=== PATIENT | female | born 1980 | race Caucasian/White ===

== ENCOUNTER → 2016-09-23 | Outpatient (CLI) | payer BC ==
[2016-09-23 07:41] LABS: HCG, SERUM QUANTITATIVE < 1.0 MIU/ML
--- NOTE | 2016-09-23 08:32 | REP ---
Clinical: Infertility. Technique: Transvaginal ultrasound examination with color Doppler evaluation of the ovaries. Findings: Normal anteverted uterus measures approximately 7.0 x 3.5 x 4.8 cm. The endometrial complex measures 5.0 mm thickness. No discrete uterine or endometrial abnormalities are appreciated. The right ovary measures 2.6 x 2.1 x 2.2 cm and includes approximately four sub centimeter follicles. The left ovary measures 2.4 x 1.6 x 2.7 cm and includes 2 sub centimeter follicles. Impression: Sub centimeter follicles noted bilaterally. Signed by Garcia Estrella MD 09/23/2016 08:24 A
[2016-09-23 10:16] LABS: ESTRADIOL 25.5 PG/ML; LUTEINIZING HORMONE 9.9 mIU/mL; PROGESTERONE < 0.2 NG/ML
== END ==
LOC: M RAD 06:22
PROVIDERS: ATTEND Obstetrics & Gynecology Reproductive Endocrinology
DX: R93.8 Abnormal findings on diagnostic imaging of other specified body structures (principal)

== ENCOUNTER → 2016-09-30 | Outpatient (CLI) | payer BC ==
[2016-09-30 10:42] LABS: HCG, SERUM QUANTITATIVE < 1.0 MIU/ML
[2016-09-30 10:47] LABS: LUTEINIZING HORMONE 4.6 mIU/mL; PROGESTERONE < 0.2 NG/ML
[2016-09-30 10:48] LABS: ESTRADIOL 183.4 PG/ML; FOLLICLE STIMULATING HORMONE 8.3 mIU/mL
--- NOTE | 2016-09-30 11:28 | REP ---
Clinical: Infertility. Technique: Transvaginal examination. Findings: Anteverted uterus measures 7.4 x 3.5 x 5.7 cm. The endometrial complex measures 2.5 mm thickness excluding the trace endocervical fluid identified. No pelvic fluid or adnexal mass lesion. Right ovary measures 2.8 x 2.1 x 3.1 cm and includes three 11 mm follicles along with approximately 15 sub centimeter follicles. Left ovary measures 3.2 x 128 x 3.0 cm and includes three follicles measuring 11 - 15 mm along with approximately 15 sub centimeter follicles. Impression: Infertility study with follicles as detailed above. Signed by Garcia Estrella MD 09/30/2016 11:20 A
== END ==
LOC: M RAD 09:43
PROVIDERS: ATTEND Obstetrics & Gynecology Reproductive Endocrinology
DX: N97.9 Female infertility, unspecified (principal)

== ENCOUNTER → 2016-10-03 | Outpatient (CLI) | payer BC ==
[2016-10-03 08:18] LABS: HCG, SERUM QUANTITATIVE < 1.0 MIU/ML
--- NOTE | 2016-10-03 08:30 | REP ---
Transvaginal pelvic sonography: History: Fertility study. Findings: Transvaginal dimensions of the uterus are 8.6 x 4.0 x 5.5 cm. Endometrial stripe is 0.7 cm thick and centrally placed. No focal uterine mass is seen. No free fluid is noted. The overall dimensions of the right ovary today are 4.3 x 2.4 x 3.0 cm on transvaginal sonography. There are two follicles in the right ovary with dimensions over a centimeter: 1.1 x 0.9, and 1.5 x 1.3 cm. There are 17 follicles visible in the right ovary ranging in size from 0.3-0.9 cm. The left ovary has dimensions of 4.1 x 3.2 x 2.9 cm. There are two follicles over a centimeter in the left ovary: 1.8 x 1.5, and 1.1 x 0.6 cm. There are 23 follicles in the left ovary ranging in size from 0.3-0.9 cm in greatest diameter. Impression: Transvaginal pelvic sonography, follicle study. Signed by Jam Trivedi MD 10/03/2016 03:19 P
[2016-10-03 10:50] LABS: LUTEINIZING HORMONE 1.1 mIU/mL; PROGESTERONE < 0.2 NG/ML
[2016-10-03 10:51] LABS: ESTRADIOL 596.9 PG/ML; FOLLICLE STIMULATING HORMONE 8.5 mIU/mL
== END ==
LOC: M RAD 07:01 → M LAB 07:01
PROVIDERS: ATTEND Obstetrics & Gynecology Reproductive Endocrinology
DX: N97.9 Female infertility, unspecified (principal)

== ENCOUNTER → 2016-10-12 | Outpatient (CLI) | payer BC ==
[2016-10-12 08:48] LABS: ESTRADIOL 238.4 PG/ML; PROGESTERONE 12.9 NG/ML
== END ==
LOC: M LAB 06:22
PROVIDERS: ATTEND Obstetrics & Gynecology Reproductive Endocrinology
DX: Z31.49 Encounter for other procreative investigation and testing (principal)

== ENCOUNTER → 2016-10-19 | Outpatient (CLI) | payer BC ==
[2016-10-19 09:29] LABS: PROGESTERONE 10.9 NG/ML
[2016-10-19 09:37] LABS: HCG, SERUM QUANTITATIVE < 1.0 MIU/ML
== END ==
LOC: M LAB 08:25
PROVIDERS: ATTEND Obstetrics & Gynecology Reproductive Endocrinology
DX: Z32.00 Encounter for pregnancy test, result unknown (principal)

== ENCOUNTER → 2016-10-21 | Outpatient (CLI) | payer BC ==
[2016-10-21 07:11] LABS: HCG, SERUM QUANTITATIVE < 1.0 MIU/ML
[2016-10-21 09:54] LABS: ESTRADIOL 26.9 PG/ML; FOLLICLE STIMULATING HORMONE 6.6 mIU/mL; LUTEINIZING HORMONE 5.8 mIU/mL; PROGESTERONE 0.7 NG/ML
== END ==
LOC: M LAB 06:01
PROVIDERS: ATTEND Obstetrics & Gynecology Reproductive Endocrinology
DX: N97.9 Female infertility, unspecified (principal)

== ENCOUNTER → 2016-10-25 | Outpatient (CLI) | payer BC ==
[2016-10-25 07:26] LABS: HCG, SERUM QUANTITATIVE < 1.0 MIU/ML
[2016-10-25 09:14] LABS: ESTRADIOL 388.4 PG/ML; FOLLICLE STIMULATING HORMONE 11.2 mIU/mL; LUTEINIZING HORMONE 2.3 mIU/mL; PROGESTERONE < 0.2 NG/ML
--- NOTE | 2016-10-25 15:45 | REP ---
Clinical: Infertility. Technique: Transvaginal ultrasound examination. Comparison: 10/03/2016. Findings: Normal anteverted uterus measures 7.9 x 3.7 x 4.7 cm. Endometrial complex measures 4.4 mm thickness. No discrete uterine or endometrial abnormalities are appreciated. No pelvic fluid or adnexal mass lesion. Right ovary measures 2.9 x 2.2 x 2.5 cm and includes four follicles measuring between 12 and 15 mm as well as approximately 10 sub centimeter follicles. Left ovary measures 3.4 x 2.5 x 2.7 cm and includes three follicles measuring between 10 and 11 mm as well as approximately 20 sub centimeter follicles. Impression: Follicular study as detailed above. Signed by Garcia Estrella MD 10/25/2016 03:34 P
== END ==
LOC: M LAB 06:36
PROVIDERS: ATTEND Obstetrics & Gynecology Reproductive Endocrinology
DX: N97.9 Female infertility, unspecified (principal)

== ENCOUNTER → 2016-10-28 | Outpatient (CLI) | payer BC ==
[2016-10-28 07:39] LABS: HCG, SERUM QUANTITATIVE < 1.0 MIU/ML
--- NOTE | 2016-10-28 08:24 | REP ---
Clinical: Infertility. Comparison: 10/25/2016. Technique: Transvaginal ultrasound examination of the uterus and adnexa. Findings: Normal anteverted uterus measures 9.3 x 4.1 x 6.1 cm. Endometrial complex measures 8.5 mm thickness and appears normal. Minuscule amount of endocervical fluid is suggested. Right ovary measures 4.3 x 3.4 x 4.3 cm and includes six follicles between 10 19 mm along with 12 sub centimeter follicles. Left ovary measures 4.0 x 4.6 x 3.7 cm and includes nine follicles between 10 and 15 mm along with seven subcentimeter follicles. Impression: Follicular study as described above. Signed by Garcia Estrella MD 10/28/2016 08:16 A
[2016-10-28 09:52] LABS: LUTEINIZING HORMONE 2.2 mIU/mL; PROGESTERONE 0.3 NG/ML
[2016-10-28 09:53] LABS: ESTRADIOL 1611.2 PG/ML
== END ==
LOC: M RAD 06:35
PROVIDERS: ATTEND Obstetrics & Gynecology Reproductive Endocrinology
DX: N97.9 Female infertility, unspecified (principal)

== ENCOUNTER → 2016-11-04 | Outpatient (CLI) | payer BC ==
[2016-11-04 10:05] LABS: PROGESTERONE 8.2 NG/ML
[2016-11-04 10:06] LABS: ESTRADIOL 63.6 PG/ML
== END ==
LOC: M LAB 06:56
PROVIDERS: ATTEND Obstetrics & Gynecology Reproductive Endocrinology
DX: N97.9 Female infertility, unspecified (principal)

== ENCOUNTER → 2016-11-14 | Outpatient (CLI) | payer BC ==
[2016-11-14 09:40] LABS: PROGESTERONE 0.7 NG/ML
== END ==
LOC: M LAB 06:45
PROVIDERS: ATTEND Obstetrics & Gynecology Reproductive Endocrinology
DX: Z32.00 Encounter for pregnancy test, result unknown (principal)

== ENCOUNTER → 2016-11-16 | Outpatient (CLI) | payer BC ==
[2016-11-16 09:03] LABS: PROGESTERONE 9.2 NG/ML
== END ==
LOC: M LAB 06:27
PROVIDERS: ATTEND Obstetrics & Gynecology Reproductive Endocrinology
DX: Z32.01 Encounter for pregnancy test, result positive (principal)

== ENCOUNTER → 2016-12-07 | Outpatient (CLI) | payer BC ==
[2016-12-07 08:30] LABS: HCG, SERUM QUANTITATIVE 72 MIU/ML
[2016-12-07 09:58] LABS: PROGESTERONE < 0.2 NG/ML
[2016-12-07 09:59] LABS: ESTRADIOL 80.9 PG/ML; FOLLICLE STIMULATING HORMONE 6.9 mIU/mL; LUTEINIZING HORMONE 7.8 mIU/mL
== END ==
LOC: M LAB 06:51
PROVIDERS: ATTEND Obstetrics & Gynecology Reproductive Endocrinology
DX: N97.9 Female infertility, unspecified (principal)

== ENCOUNTER → 2016-12-16 | Outpatient (CLI) | payer BC | LOC: M LAB 14:18 | PROVIDERS: ATTEND Obstetrics & Gynecology Reproductive Endocrinology | DX: N97.9 Female infertility, unspecified (principal) ==

== ENCOUNTER → 2017-01-03 | Outpatient (CLI) | payer BC | LOC: M LAB 14:35 | PROVIDERS: ATTEND Obstetrics & Gynecology Reproductive Endocrinology | DX: N97.9 Female infertility, unspecified (principal) ==

== ENCOUNTER → 2017-01-17 | Outpatient (CLI) | payer BC | LOC: M LAB 14:35 | PROVIDERS: ATTEND Obstetrics & Gynecology Reproductive Endocrinology | DX: O02.1 Missed abortion (principal) ==

== ENCOUNTER → 2017-04-03 | Outpatient (CLI) | payer BC ==
--- NOTE | 2017-04-03 10:05 | REP ---
TRANSVAGINAL PELVIC SONOGRAPHY: HISTORY: Infertility. FINDINGS: Uterine dimensions are 7.5 x 3.7 x 5.0 cm. Endometrial echo 0.6 cm thick. No focal uterine mass is seen. No free fluid is noted. The right ovary measures 3.1 x 2.3 x 3.1 cm. It contains a 1.6 x 1.7 x 1.4 cm hypoechoic cyst consistent with a hemorrhagic follicle. In addition, there are 14 small follicles in the right ovary ranging in size from 0.3 to 0.8 cm. Left ovary's dimensions today are 3.1 x 2.1 x 2.7 cm. There are 19 follicles ranging in size from 0.3 to 0.8 cm in the left ovary. No left ovarian follicles are seen greater than 1 cm. IMPRESSION: Transvaginal pelvic sonography, follicle study as above. Signed by Jam Trivedi MD 04/03/2017 02:44 P
[2017-04-03 11:01] LABS: HCG, SERUM QUANTITATIVE < 1.0 MIU/ML
[2017-04-03 11:06] LABS: ESTRADIOL 62.4 PG/ML; LUTEINIZING HORMONE 26.7 mIU/mL; PROGESTERONE 0.5 NG/ML
== END ==
LOC: M LAB 08:57 → M RAD 08:57
PROVIDERS: ATTEND Obstetrics & Gynecology Reproductive Endocrinology
DX: N83.01 Follicular cyst of right ovary (principal); N97.9 Female infertility, unspecified

== ENCOUNTER → 2017-04-05 | Outpatient (REF) | payer BC | LOC: M LAB REF 16:40 | PROVIDERS: ATTEND Family Medicine | DX: D23.62 Other benign neoplasm of skin of left upper limb, including shoulder (principal) ==

== ENCOUNTER → 2017-04-06 | Outpatient (REF) | payer BC | LOC: M LAB REF 16:30 | PROVIDERS: ATTEND Family Medicine | DX: D22.5 Melanocytic nevi of trunk (principal) ==

== ENCOUNTER → 2017-04-07 | Outpatient (CLI) | payer BC ==
[2017-04-07 11:44] LABS: PROGESTERONE 0.9 NG/ML
[2017-04-07 11:45] LABS: LUTEINIZING HORMONE 35.3 mIU/mL
[2017-04-07 11:46] LABS: ESTRADIOL 729.5 PG/ML
--- NOTE | 2017-04-07 15:16 | REP ---
Pelvic sonography: Transvaginal study. History: Infertility. Findings: Uterine dimensions are normal today at 8.1 x 3.8 x 5.2 cm. There is a Nabothian cyst in the cervix. Endometrial echo is 1.0 cm thick. No focal uterine mass or free fluid is seen. The overall dimensions of the right ovary on transvaginal sonography today are 3.4 x 3.1 x 3.2 cm. The right ovary contains four follicles measuring over a centimeter as follows: 1.0 x 1.0, 1.0 x 0.8, 1.2 x 1.0, and 1.1 x 0.8 cm. In addition, there are approximately 36 follicles in the right ovary ranging in size from 0.3 to 0.7 cm. The left ovarian dimensions are 4.3 x 3.1 x 3.1 cm. The left ovary contains three follicles over a centimeter measured as follows: 1.3 x 1.0, 1.4 x 1.0, and 1.2 x 0.8 cm. In addition, the left ovary contains 10 follicles ranging in size from 0.3 to 0.6 cm. Impression: Transvaginal pelvic sonography, ovarian follicle study. Signed by Jam Trivedi MD 04/07/2017 03:19 P
== END ==
LOC: M LAB 07:22
PROVIDERS: ATTEND Obstetrics & Gynecology Reproductive Endocrinology
DX: N97.9 Female infertility, unspecified (principal)

== ENCOUNTER → 2017-04-19 | Outpatient (CLI) | payer BC ==
[2017-04-19 09:58] LABS: ESTRADIOL 290.4 PG/ML; PROGESTERONE 14.2 NG/ML
== END ==
LOC: M LAB 07:04
PROVIDERS: ATTEND Obstetrics & Gynecology Reproductive Endocrinology
DX: N97.9 Female infertility, unspecified (principal)

== ENCOUNTER → 2017-04-26 | Outpatient (CLI) | payer BC | LOC: M LAB 06:28 | PROVIDERS: ATTEND Obstetrics & Gynecology Reproductive Endocrinology | DX: N97.9 Female infertility, unspecified (principal) ==

== ENCOUNTER → 2017-04-28 | Outpatient (CLI) | payer BC ==
[2017-04-28 07:20] LABS: ESTRADIOL 164.7 PG/ML; PROGESTERONE 23.5 NG/ML
== END ==
LOC: M LAB 06:20
PROVIDERS: ATTEND Obstetrics & Gynecology Reproductive Endocrinology
DX: Z32.01 Encounter for pregnancy test, result positive (principal)

== ENCOUNTER → 2017-05-01 | Outpatient (CLI) | payer BC ==
[2017-05-01 10:40] LABS: ESTRADIOL 236.5 PG/ML; PROGESTERONE 23.7 NG/ML
== END ==
LOC: M LAB 06:21
PROVIDERS: ATTEND Obstetrics & Gynecology Reproductive Endocrinology
DX: Z32.01 Encounter for pregnancy test, result positive (principal)

== ENCOUNTER → 2017-05-03 | Outpatient (CLI) | payer BC ==
[2017-05-03 10:09] LABS: ESTRADIOL 261.2 PG/ML; PROGESTERONE 17.3 NG/ML
== END ==
LOC: M LAB 06:23
PROVIDERS: ATTEND Obstetrics & Gynecology Reproductive Endocrinology
DX: Z32.01 Encounter for pregnancy test, result positive (principal)

== ENCOUNTER → 2017-07-26 | Outpatient (CLI) | payer BC ==
[2017-07-26 08:30] LABS: HCG, SERUM QUANTITATIVE < 1.0 MIU/ML
[2017-07-26 11:17] LABS: PROGESTERONE 0.5 NG/ML
[2017-07-26 11:20] LABS: LUTEINIZING HORMONE 23.3 mIU/mL
[2017-07-26 11:21] LABS: ESTRADIOL 63.6 PG/ML; FOLLICLE STIMULATING HORMONE 7.2 mIU/mL
--- NOTE | 2017-07-26 17:56 | REP ---
TRANSVAGINAL PELVIC ULTRASOUND, FOLLICLE STUDY: Transvaginal pelvic ultrasound performed. The uterus measures 7.8 x 4.8 x 3.4 cm. Endometrial stripe measures 3 mm. Trace fluid is seen in the endometrial canal. The right ovary measures 2.6 x 2.9 x 2.8 cm. Three dominant follicles measure greater than 1 cm in diameter. The largest measures 11 x 9 and 12 x 6 mm. Multiple other subcentimeter follicles are seen in the right ovary. The left ovary measures 2.8 x 2.9 x 3.2 cm. A dominant follicle measures 11 x 10 mm. Multiple other subcentimeter follicles are seen. Signed by Amandeep Casey MD 07/27/2017 08:25 P
== END ==
LOC: M RAD 07:15
PROVIDERS: ATTEND Obstetrics & Gynecology Reproductive Endocrinology
DX: N97.9 Female infertility, unspecified (principal); N83.02 Follicular cyst of left ovary; N83.01 Follicular cyst of right ovary

== ENCOUNTER → 2017-08-14 | Outpatient (CLI) | payer BC ==
[2017-08-14 08:32] LABS: ESTRADIOL 484.2 PG/ML
[2017-08-14 08:55] LABS: PROGESTERONE 52.4 NG/ML
== END ==
LOC: M LAB 06:51
DX: N97.9 Female infertility, unspecified (principal)
CPT/HCPCS: 84443

== ENCOUNTER → 2017-08-21 | Outpatient (CLI) | payer BC ==
[2017-08-21 08:24] LABS: HCG, SERUM QUANTITATIVE < 1.0 MIU/ML
[2017-08-21 10:40] LABS: PROGESTERONE 40.8 NG/ML
== END ==
LOC: M LAB 07:31
DX: N97.9 Female infertility, unspecified (principal)
CPT/HCPCS: 84702

== ENCOUNTER → 2017-09-27 | Outpatient (CLI) | payer BC | LOC: M RAD 11:02 | DX: E28.9 Ovarian dysfunction, unspecified (principal) | CPT/HCPCS: 76830 ==

== ENCOUNTER → 2017-09-27 | Outpatient (CLI) | payer BC ==
[2017-09-27 11:43] LABS: LUTEINIZING HORMONE 5.3 mIU/mL
[2017-09-27 11:43] LABS: PROGESTERONE 0.4 NG/ML
[2017-09-27 11:44] LABS: ESTRADIOL 45.5 PG/ML; FOLLICLE STIMULATING HORMONE 4.7 mIU/mL
[2017-09-27 11:49] LABS: HCG, SERUM QUANTITATIVE < 1.0 MIU/ML
== END ==
LOC: M LAB 10:46
DX: E28.9 Ovarian dysfunction, unspecified (principal)

== ENCOUNTER → 2017-10-04 | Outpatient (REF) | payer BC | LOC: M LAB REF 13:18 | DX: R30.0 Dysuria (principal) | CPT/HCPCS: 87186 ==

== ENCOUNTER → 2017-10-06 | Outpatient (REF) | payer BC ==
[2017-10-06 12:29] LABS: PROGESTERONE < 0.2 NG/ML
[2017-10-06 12:30] LABS: ESTRADIOL 1214.4 PG/ML; LUTEINIZING HORMONE 9.8 mIU/mL
== END ==
LOC: M LABDRAW1 11:47
DX: E28.9 Ovarian dysfunction, unspecified (principal)
CPT/HCPCS: 83002

== ENCOUNTER → 2017-10-17 | Outpatient (CLI) | payer BC ==
[2017-10-17 09:53] LABS: ESTRADIOL 659.3 PG/ML
[2017-10-17 09:53] LABS: PROGESTERONE 41.7 NG/ML
== END ==
LOC: M LAB 06:46
DX: E28.9 Ovarian dysfunction, unspecified (principal)
CPT/HCPCS: 84443

== ENCOUNTER → 2017-10-23 | Outpatient (CLI) | payer BC ==
[2017-10-23 07:56] LABS: HCG, SERUM QUANTITATIVE 13 MIU/ML
[2017-10-23 09:01] LABS: PROGESTERONE 49.9 NG/ML
== END ==
LOC: M LAB 07:12
DX: E28.9 Ovarian dysfunction, unspecified (principal)

== ENCOUNTER → 2017-10-25 | Outpatient (CLI) | payer BC ==
[2017-10-25 15:15] LABS: ESTRADIOL 1500.5 PG/ML
[2017-10-25 15:15] LABS: PROGESTERONE 32.4 NG/ML
[2017-10-25 15:16] LABS: HCG, SERUM QUANTITATIVE 12 MIU/ML; THYROID STIMULATING HORMONE 0.759 uIU/ML (0.358-3.740)
== END ==
LOC: M LAB 14:17
DX: E28.9 Ovarian dysfunction, unspecified (principal)
CPT/HCPCS: 84443

== ENCOUNTER → 2018-05-09 | Outpatient (REF) | payer BC | LOC: M LAB REF 17:27 | DX: R30.0 Dysuria (principal) | CPT/HCPCS: 87086 ==

== ENCOUNTER → 2018-05-11 | Outpatient (REF) | payer BC ==
[2018-05-11 19:27] LABS: CHLAMYDIA DNA AMPLIFICATION NEGATIVE (NEGATIVE); GC DNA AMPLIFICATION NEGATIVE (NEGATIVE)
== END ==
LOC: M LAB REF 16:51
DX: Z11.3 Encounter for screening for infections with a predominantly sexual mode of transmission (principal)
CPT/HCPCS: 87591

== ENCOUNTER → 2018-05-14 | Outpatient (CLI) | payer BC | LOC: M RAD 17:10 | DX: R10.2 Pelvic and perineal pain (principal) | CPT/HCPCS: 76856 ==

== ENCOUNTER → 2018-06-06 | Outpatient (REF) | payer BC ==
[2018-06-08 14:28] LABS: HPV HYBRID CAPTURE II Negative (Negative)
== END ==
LOC: M LAB REF 17:19
DX: Z12.4 Encounter for screening for malignant neoplasm of cervix (principal)
CPT/HCPCS: 88142

== ENCOUNTER → 2018-07-09 | Outpatient (CLI) | payer BC ==
[2018-07-09 20:13] LABS: HCG, SERUM QUANTITATIVE < 1.0 MIU/ML
[2018-07-09 20:18] LABS: ESTRADIOL 45.4 PG/ML
[2018-07-09 20:18] LABS: PROGESTERONE 0.21 NG/ML
== END ==
LOC: M WUC 15:38
DX: N91.1 Secondary amenorrhea (principal)
CPT/HCPCS: 84702

== ENCOUNTER → 2019-02-15 | Outpatient (REF) | payer BC ==
[2019-02-15 12:05] LABS: HCG, SERUM QUANTITATIVE < 1.0 MIU/ML
[2019-02-15 12:06] LABS: ESTRADIOL 70.9 PG/ML; FOLLICLE STIMULATING HORMONE 6.3 mIU/mL; LUTEINIZING HORMONE 20.4 mIU/mL; PROGESTERONE 0.21 NG/ML
== END ==
LOC: M LABDRAW1 08:48
PROVIDERS: ATTEND Obstetrics & Gynecology Reproductive Endocrinology
DX: E28.9 Ovarian dysfunction, unspecified (principal)

== ENCOUNTER → 2019-02-20 | Outpatient (CLI) | payer BC ==
--- NOTE | 2019-02-20 07:23 | REP ---
Pelvic ultrasound for follicle analysis, stat request: The study is performed with endovaginal imaging. Right ovary: The right ovary is normal size measuring 4.8 x 3.3 x 4.1 cm. There are five follicles greater than 1 cm as follows: 17.1 x 16.6 mm, 10.2 x 8.3 mm, 13.8 x 8.8 mm, 11.4 x 7.8 mm, 15.1 x 10.2 mm. Additionally there are approximate 12 follicles measuring 3.9 - 9.3 mm. Left ovary: The left ovary is normal size measuring 4.6 x 4.43 point 9 cm. There are five follicles greater than one point 0 cm diameter as follows: 10.3 x 0.3 mm, 11.1 x 10.2 mm, 12.1 x 8.6 mm, 11.1 x 9.6 mm, 15.2 x 9.6 mm. Additionally there are approximate 16 follicles measuring 3.3 - 9.6 mm. The uterus is anteverted and normal size measuring 8.6 x 4.2 x 5.5 cm. The endometrial stripe measures 13.3 mm thickness and has a trilaminar appearance. Electronically Signed by Amandeep Clark MD 02/20/2019 07:14 A
[2019-02-20 10:16] LABS: ESTRADIOL 1262.6 PG/ML; PROGESTERONE 1.16 NG/ML
== END ==
LOC: M RAD 06:06
PROVIDERS: ATTEND Obstetrics & Gynecology Reproductive Endocrinology
DX: N97.9 Female infertility, unspecified (principal)

== ENCOUNTER → 2019-04-01 | Outpatient (CLI) | payer BC ==
[~2019-04-01] MED LIST: CRIN8GEL4; ENOX30IN3; HYDR200T3; PROG50IN4
[2019-04-01 09:19] LABS: THYROID STIMULATING HORMONE 1.11 uIU/ML (0.358-3.740)
[2019-04-01 10:34] LABS: ESTRADIOL 216.1 PG/ML
[2019-04-01 11:46] LABS: PROGESTERONE 31.88 NG/ML
== END ==
LOC: M LAB 08:01
PROVIDERS: ATTEND Obstetrics & Gynecology Reproductive Endocrinology
DX: E28.9 Ovarian dysfunction, unspecified (principal)

== ENCOUNTER → 2019-04-05 | Outpatient (CLI) | payer BC ==
[2019-04-05 09:41] LABS: PROGESTERONE 17.53 NG/ML
== END ==
LOC: M LAB 07:38
PROVIDERS: ATTEND Obstetrics & Gynecology Reproductive Endocrinology
DX: E28.9 Ovarian dysfunction, unspecified (principal)

== ENCOUNTER → 2019-04-09 | Outpatient (CLI) | payer BC ==
[2019-04-09 07:05] LABS: THYROID STIMULATING HORMONE 0.908 uIU/ML (0.358-3.740)
[2019-04-09 09:15] LABS: PROGESTERONE 39.62 NG/ML
== END ==
LOC: M LAB 06:17
PROVIDERS: ATTEND Obstetrics & Gynecology Reproductive Endocrinology
DX: Z32.01 Encounter for pregnancy test, result positive (principal); Z3A.00 Weeks of gestation of pregnancy not specified

== ENCOUNTER → 2019-04-16 | Outpatient (CLI) | payer BC ==
[2019-04-16 10:27] LABS: ESTRADIOL 284.6 PG/ML; THYROID STIMULATING HORMONE 1.32 uIU/ML (0.358-3.740)
[2019-04-16 11:17] LABS: PROGESTERONE 42.78 NG/ML
== END ==
LOC: M LAB 06:14
PROVIDERS: ATTEND Obstetrics & Gynecology Reproductive Endocrinology
DX: E28.9 Ovarian dysfunction, unspecified (principal)

== ENCOUNTER 2019-04-19 16:34 | Emergency (ER) | payer BC ==
[~2019-04-19] VITALS: Ht 157.5 cm; Wt 79.7 kg
[2019-04-19 17:13] LABS: BASO % 0.3 % (0.0-1.0); EOS % 0.2 % (0.0-3.0); HEMATOCRIT 38.2 % (36.0-47.0); HEMOGLOBIN 12.7 g/dl (12.0-15.5); LYMPH # 2.8 10^3/uL (1.5-5.0); LYMPH % 22.3 % (24.0-44.0); MEAN CORPUSCULAR HEMOGLOBIN 31.4 pg (27.0-33.0); MEAN CORPUSCULAR HGB CONC 33.2 g/dl (32.0-36.5); MEAN CORPUSCULAR VOLUME 94.3 fl (80.0-96.0); MONO # 0.7 10^3/uL (0.0-0.8); MONO % 5.4 % (0.0-5.0); NEUTROPHILS # 8.7 10^3/uL (1.5-8.5); NEUTROPHILS % 69.9 % (36.0-66.0); PLATELET COUNT, AUTOMATED 262 10^3/uL (150-450); RED BLOOD COUNT 4.05 10^6/uL (4.00-5.40); WHITE BLOOD COUNT 12.4 10^3/uL (4.0-10.0)
[2019-04-19 17:42] LABS: BLOOD UREA NITROGEN 18 MG/DL (7-18); CALCIUM LEVEL 9.2 MG/DL (8.5-10.1); CARBON DIOXIDE LEVEL 24 MEQ/L (21-32); CHLORIDE LEVEL 107 MEQ/L (98-107); CREATININE FOR GFR 0.85 MG/DL (0.55-1.30); GLOMERULAR FILTRATION RATE > 60.0 (>60); GLUCOSE, FASTING 88 MG/DL (70-100); HCG, SERUM QUANTITATIVE 6253 MIU/ML; SODIUM LEVEL 141 MEQ/L (136-145)
--- NOTE | 2019-04-19 18:10 | REPVR ---
EXAM: US First Trimester, Transabdominal and US , Transvaginal EXAM DATE/TIME: 04/19/2019 5:01 PM CLINICAL HISTORY: 39 years old, female; Lmp or gestational age (in weeks): 5w5d; Other: Vaginal bleeding; ; Additional info: Heavy vaginal bleeding, 5 w 5 d TECHNIQUE: Imaging protocol: Real-time transabdominal obstetrical ultrasound of the maternal pelvis and a first trimester , less than 14 weeks 0 days, with image documentation. Transvaginal imaging was used for better evaluation of the fetus and adnexa. COMPARISON: Transvaginal NON- US 02/20/2019 6:17 AM FINDINGS: GESTATION: Gestation: Single intrauterine gestational sac, measuring 10 x 13 x 5 mm. Single yolk sac. No definite pole. Heart rate: N/A Placenta: Unremarkable. No subchorionic bleed. Amniotic fluid: Amniotic and chorionic fluid are normal for gestational age. BIOMETRY: Estimated gestational age: Estimated gestational age is 5 weeks and 5 days. MATERNAL: Uterus: Uterus measures 4.2 x 8.3 x 5.8 cm. Cervix: Unremarkable. Cervix is closed. Right adnexa: Normal-appearing right ovary. Positive blood flow. Left adnexa: Left ovary was obscured due to technical factors. Intraperitoneal: No intraperitoneal free fluid. IMPRESSION: Single very early intrauterine gestation, dating 5 weeks and 5 days. pole is not yet identified. Electronically signed by: Mago Hall On 04/19/2019 18:10:22 PM
[2019-04-19 19:20] VITALS: BP 132/86
== END 2019-04-19 19:21 | disposition home or self-care (01) ==
LOC: M ED 16:34
DX: O26.851 Spotting complicating pregnancy, first trimester (principal); Z3A.01 Less than 8 weeks gestation of pregnancy; O26.891 Other specified pregnancy related conditions, first trimester; Z90.89 Acquired absence of other organs; Z90.49 Acquired absence of other specified parts of digestive tract

== ENCOUNTER → 2019-04-21 | Outpatient (CLI) | payer BC ==
[2019-04-21 18:43] LABS: THYROID STIMULATING HORMONE 1.08 uIU/ML (0.358-3.740)
[2019-04-22 09:50] LABS: ESTRADIOL 219.4 PG/ML
[2019-04-22 09:51] LABS: PROGESTERONE 53.54 NG/ML
== END ==
LOC: M WUC 09:10
PROVIDERS: ATTEND Obstetrics & Gynecology Reproductive Endocrinology
DX: E28.9 Ovarian dysfunction, unspecified (principal)

== ENCOUNTER → 2019-04-23 | Outpatient (CLI) | payer BC ==
--- NOTE | 2019-04-23 07:42 | REPVR ---
EXAM: US First Trimester, Transabdominal and US , Transvaginal US Duplex Artery and Vein of the Abdominal and/or Reproductive Organs, Complete EXAM DATE/TIME: 04/23/2019 6:55 AM CLINICAL HISTORY: 39 years old, female; Lmp or gestational age (in weeks): Ivf 03/28/19; Antepartum complications; Bleeding; ; Additional info: Preg dating viability TECHNIQUE: Imaging protocol: Real-time transabdominal obstetrical ultrasound of the maternal pelvis and a first trimester , less than 14 weeks 0 days, with image documentation. Transvaginal imaging was used for better evaluation of the fetus and adnexa. Real-time duplex ultrasound scan of the arterial and venous flow of the abdominal and/or reproductive organs with B-mode, color Doppler flow and spectral waveform analysis with image documentation. Exam focused on the region of clinical concern. Complete exam. Duplex images required to evaluate vascular conditions. COMPARISON: US OB 04/19/2019 5:02 PM FINDINGS: The uterus measures 8.0 x 4.4 x 6.5 cm transabdominally and 9.1 x 4.6 x 5.2 cm transvaginally. An intrauterine gestational sac is again present, with mean diameter now approximately 8.2 mm (previously 9.2 mm). There is probably now a pole measuring 2.6 mm, corresponding to an estimated gestational age of 5 weeks 6 days. No heart tones were identified. No subchorionic hemorrhage is demonstrated. The right ovary measures 3.3 x 2.3 x 2.8 cm transvaginally. It demonstrates normal internal arterial and venous flow. Peak systolic velocity 26.0 cm/s, end diastolic velocity 13.8 cm/s, resistive index 0.47. The left ovary measures 3.0 x 2.1 x 3.4 cm transvaginally. It demonstrates normal internal arterial and venous flow. Peak systolic velocity 13.8 cm/s, end-diastolic velocity 5.7 cm/s, resistive index 0.59. No significant free fluid is demonstrated in the pelvis, nor is any extra ovarian adnexal mass. IMPRESSION: 1. Single intrauterine gestational sac, measuring slightly smaller than on 04/19/19, but now with a probable 2.6 mm pole. No heart tones identified. Findings are suspicious for but not diagnostic of failure. Followup serial beta-hCG and followup ultrasound when clinically appropriate. 2. Unremarkable ovaries with normal internal flow and no torsion. FINDINGS SUSPICIOUS FOR, BUT NOT DIAGNOSTIC OF FAILURE ?CRL of less than 7mm and no heartbeat ?MSD of 16-24 mm and no embryo ?Absence of embryo with heartbeat 7-13 days after a scan that showed a gestational sac without a yolk sac. ?Absence of embryo with heartbeat 7-10 days after a scan that showed a gestational sac with a yolk sac. ?Absence of embryo 6 or more weeks after LMP. ?Empty amnion (amnion seen adjacent to yolk sac, with no visible embryo). ?Enlarged yolk sac (7mm or greater) ?Small gestational sac in relation to the size of the embryo (5mm or less difference between MSD and CRL). Electronically signed by: Raheel Chan On 04/23/2019 07:41:52 AM
[2019-04-23 08:21] LABS: THYROID STIMULATING HORMONE 3.04 uIU/ML (0.358-3.740)
[2019-04-23 09:39] LABS: PROGESTERONE 55.53 NG/ML
[2019-04-23 09:40] LABS: ESTRADIOL 169.1 PG/ML
== END ==
LOC: M RAD 06:25
PROVIDERS: ATTEND Obstetrics & Gynecology Reproductive Endocrinology
DX: Z34.81 Encounter for supervision of other normal pregnancy, first trimester (principal)

== ENCOUNTER → 2019-05-31 | Outpatient (CLI) | payer BC ==
[2019-05-31 07:18] LABS: HCG, SERUM QUANTITATIVE < 1.0 MIU/ML; THYROID STIMULATING HORMONE 0.997 uIU/ML (0.358-3.740)
[2019-05-31 09:26] LABS: ESTRADIOL 34.3 PG/ML; PROGESTERONE 0.21 NG/ML
[2019-05-31 09:27] LABS: FOLLICLE STIMULATING HORMONE 7.8 mIU/mL
--- NOTE | 2019-05-31 10:11 | REP ---
TRANSVAGINAL PELVIC ULTRASOUND FOLLICLE STUDY: Transvaginal pelvic ultrasound performed. The uterus measures 7.8 x 4.2 x 5.5 cm. Endometrial thickness is 4.0 mm. Right ovary measures 2.5 x 2.2 x 1.8 cm and contains a 12.0 x 7.0 mm follicle. A few other subcentimeter follicles are seen in the right ovary. Left ovary measures 3.2 x 2.5 x 2.9 cm. A dominant follicle measures 14.0 x 13.0 mm and there is another 11.0 x 6.0 mm follicle. A few other subcentimeter follicles are seen. Electronically Signed by Amandeep Casey MD 06/01/2019 11:04 A
[2019-05-31 10:14] LABS: LUTEINIZING HORMONE 6.2 mIU/mL
== END ==
LOC: M RAD 06:09
PROVIDERS: ATTEND Obstetrics & Gynecology Reproductive Endocrinology
DX: N97.9 Female infertility, unspecified (principal)

== ENCOUNTER → 2019-06-07 | Outpatient (CLI) | payer BC ==
--- NOTE | 2019-06-07 08:24 | REP ---
Clinical: Infertility. Technique: Transvaginal ultrasound examination. Findings: Anteverted uterus measures approximately 8.4 x 3.4 x 5.0 cm. Endometrial complex measures 8.4 mm thickness. No uterine abnormality noted. No endocervical or pelvic free fluid. Right ovary measures 2.9 x 2.5 x 2.7 cm and includes 18 mm and 17 mm follicles along with four subcentimeter follicles between 3.3 and 5.0 mm. Left ovary measures 2.5 x 3.3 x 2.8 cm and includes 10 mm and 11 mm follicles along with 13 sub centimeter follicles measuring between 2.6 and 7.9 mm. Impression: Follicular study as above. Electronically Signed by Garcia Estrella MD 06/07/2019 08:16 A
[2019-06-07 09:30] LABS: ESTRADIOL 168.1 PG/ML; LUTEINIZING HORMONE 4.6 mIU/mL; PROGESTERONE 0.21 NG/ML
[2019-06-11 10:11] LABS: DRVV SCREEN 35.8 SEC
[2019-06-11 10:16] LABS: PTT LUPUS TYPE ANTICOAG SCREEN 0.9 (0-1.2)
== END ==
LOC: M RAD 06:13
PROVIDERS: ATTEND Obstetrics & Gynecology Reproductive Endocrinology
DX: N97.9 Female infertility, unspecified (principal)

== ENCOUNTER → 2019-06-19 | Outpatient (CLI) | payer BC ==
[2019-06-19 08:09] LABS: THYROID STIMULATING HORMONE 1.29 uIU/ML (0.358-3.740)
[2019-06-19 10:01] LABS: ESTRADIOL 357.9 PG/ML
[2019-06-19 10:24] LABS: PROGESTERONE 52.8 NG/ML
== END ==
LOC: M LAB 06:50
PROVIDERS: ATTEND Obstetrics & Gynecology Reproductive Endocrinology
DX: E28.9 Ovarian dysfunction, unspecified (principal)

== ENCOUNTER → 2019-06-24 | Outpatient (CLI) | payer BC ==
[2019-06-24 12:37] LABS: PROGESTERONE 76.08 NG/ML
== END ==
LOC: M LAB 06:20
PROVIDERS: ATTEND Obstetrics & Gynecology Reproductive Endocrinology
DX: E28.9 Ovarian dysfunction, unspecified (principal)

== ENCOUNTER → 2019-06-26 | Outpatient (CLI) | payer BC ==
[2019-06-26 07:10] LABS: THYROID STIMULATING HORMONE 0.991 uIU/ML (0.358-3.740)
[2019-06-26 10:20] LABS: ESTRADIOL 661.2 PG/ML
[2019-06-26 10:47] LABS: PROGESTERONE 61.08 NG/ML
== END ==
LOC: M LAB 06:13
PROVIDERS: ATTEND Obstetrics & Gynecology Reproductive Endocrinology
DX: Z32.01 Encounter for pregnancy test, result positive (principal); Z3A.00 Weeks of gestation of pregnancy not specified

== ENCOUNTER → 2019-06-28 | Outpatient (CLI) | payer BC ==
[2019-06-28 10:33] LABS: PROGESTERONE 59.39 NG/ML
== END ==
LOC: M LAB 06:05
PROVIDERS: ATTEND Obstetrics & Gynecology Reproductive Endocrinology
DX: O02.81 Inappropriate change in quantitative human chorionic gonadotropin (hCG) in early pregnancy (principal); Z3A.00 Weeks of gestation of pregnancy not specified

== ENCOUNTER → 2019-07-05 | Outpatient (CLI) | payer BC | LOC: M LAB 08:39 | PROVIDERS: ATTEND Obstetrics & Gynecology Reproductive Endocrinology | DX: Z32.01 Encounter for pregnancy test, result positive (principal) ==

== ENCOUNTER → 2019-07-08 | Outpatient (CLI) | payer BC ==
[2019-07-08 09:06] LABS: THYROID STIMULATING HORMONE 2.23 uIU/ML (0.358-3.740)
[2019-07-08 11:10] LABS: PROGESTERONE 47.11 NG/ML
== END ==
LOC: M LAB 06:21
PROVIDERS: ATTEND Obstetrics & Gynecology Reproductive Endocrinology
DX: Z32.01 Encounter for pregnancy test, result positive (principal); Z3A.00 Weeks of gestation of pregnancy not specified

== ENCOUNTER → 2019-07-15 | Outpatient (CLI) | payer BC ==
--- NOTE | 2019-07-15 07:43 | REPVR ---
PROCEDURE INFORMATION: Exam: US , Transvaginal and US Duplex Artery and Vein, Ovaries, Complete Exam date and time: 07/15/2019 6:55 AM Age: 39 years old Clinical history: Screening exam; Other: Verify number of sacs and viability; ; Patient HX: Ivf 06/14/19; Additional info: Infertility TECHNIQUE: Imaging protocol: Real-time transvaginal obstetrical ultrasound of the maternal pelvis and a first trimester with image documentation. Transvaginal imaging was used for better evaluation of the fetus and adnexa. Real-time duplex ultrasound scan of the arterial and venous flow of the ovaries with B-mode, color Doppler flow and spectral waveform analysis, Complete Duplex. COMPARISON: Transvaginal NON- US 06/07/2019 6:20 AM FINDINGS: GESTATION: Gestation: Single intrauterine gestational sac. Small yolk sac present. Heart rate: 139 beats per minute. Placenta: No demonstrated subchorionic hemorrhage. BIOMETRY: Estimated gestational age: pole with crown-rump length of 5.8 mm, corresponding to an estimated gestational age of 6 weeks 3 days. MATERNAL: Right adnexa: The right ovary measures 3.0 x 2.8 x 2.4 cm and a thickwalled cystic lesion suggestive of corpus luteum, which was not measured, but appears to be approximately 1.7 x 2.1 x 1.3 cm. It demonstrates normal internal arterial and venous flow. Left adnexa: The left ovary measures 2.7 x 2.3 x 2.7 cm and contains small follicles. It demonstrates normal internal arterial and venous flow. IMPRESSION: 1. Single viable intrauterine gestation with estimated gestational age of 6 weeks 3 days. 2. 2.1 cm simple right ovarian corpus luteum. 3. Normal internal flow to both ovaries without torsion. Electronically signed by: Raheel Chan On 07/15/2019 07:43:28 AM
[2019-07-15 12:15] LABS: ESTRADIOL 530.2 PG/ML; PROGESTERONE 58.48 NG/ML; THYROID STIMULATING HORMONE 1.73 uIU/ML (0.358-3.740)
== END ==
LOC: M RAD 06:03
PROVIDERS: ATTEND Obstetrics & Gynecology Reproductive Endocrinology
DX: Z32.01 Encounter for pregnancy test, result positive (principal); Z3A.01 Less than 8 weeks gestation of pregnancy

== ENCOUNTER → 2019-07-22 | Outpatient (CLI) | payer BC ==
[2019-07-22 08:20] LABS: THYROID STIMULATING HORMONE 2.45 uIU/ML (0.358-3.740)
[2019-07-22 10:25] LABS: ESTRADIOL 397.1 PG/ML
[2019-07-22 10:53] LABS: PROGESTERONE 56.33 NG/ML
== END ==
LOC: M LAB 07:02
PROVIDERS: ATTEND Obstetrics & Gynecology Reproductive Endocrinology
DX: Z32.01 Encounter for pregnancy test, result positive (principal); Z3A.00 Weeks of gestation of pregnancy not specified

== ENCOUNTER 2019-08-07 04:17 | Emergency (ER) | payer BC ==
[~2019-08-07] VITALS: Ht 157.5 cm; Wt 81.8 kg
[2019-08-07 04:18] VITALS: BP 139/84
[2019-08-07] MEDS ORDERED: HYDR200T3 (04:28)
[2019-08-07] MEDS ORDERED: PROG50IN4 (04:28)
[2019-08-07] MEDS ORDERED: ENOX30IN3 (04:28)
[2019-08-07] MEDS ORDERED: CRIN8GEL4 (04:28)
--- NOTE | 2019-08-07 08:23 | REPVR ---
PROCEDURE INFORMATION: Exam: US First Trimester, Transabdominal Exam date and time: 08/07/2019 5:33 AM Age: 39 years old Clinical indication: Lmp or gestational age (in weeks): 10; Antepartum complications; Bleeding; ; Additional info: Spotting, 10weeks TECHNIQUE: Imaging protocol: Real-time transabdominal obstetrical ultrasound of the maternal pelvis and a first trimester , less than 14 weeks 0 days, with image documentation. COMPARISON: TRANSVAGINAL US 2019-07-15 06:30 FINDINGS: GESTATION: Gestation: pole 3 cm. Heart rate: heart rate 175 beats per minute. heart rate 175 beats per minute. Placenta: Small subchorionic hemorrhage. Amniotic fluid: Amniotic and chorionic fluid are normal for gestational age. BIOMETRY: Estimated gestational age: Gestational age 9 weeks and 6 days. Estimated due date: Estimated due date 03/05/2020. MATERNAL: Uterus: Unremarkable. Cervix: Unremarkable. Right adnexa: Right ovary contains a 1.4 cm cyst. Left adnexa: Unremarkable. Intraperitoneal: Subchronic hemorrhage measures 2.7 x 1.5 x 1.1 cm. IMPRESSION: 1. Living intrauterine gestation, age 9 weeks and 6 days with estimated due date 03/05/2020. 2. Small subchorionic hemorrhage measures 2.7 x 1.5 x 1.1 cm. Electronically signed by: Aiden Rosales On 08/07/2019 08:23:13 AM
[2019-08-07 08:24] LABS: CHLAMYDIA DNA AMPLIFICATION NEGATIVE (NEGATIVE); GC DNA AMPLIFICATION NEGATIVE (NEGATIVE)
== END 2019-08-07 06:46 | disposition home or self-care (01) ==
LOC: M ED 04:17
DX: O20.0 Threatened abortion (principal); O20.8 Other hemorrhage in early pregnancy; Z3A.09 9 weeks gestation of pregnancy; O34.81 Maternal care for other abnormalities of pelvic organs, first trimester; N83.291 Other ovarian cyst, right side; Z79.818 Long term (current) use of other agents affecting estrogen receptors and estrogen levels; Z79.899 Other long term (current) drug therapy

== ENCOUNTER → 2019-09-16 | Outpatient (CLI) | payer BC ==
[2019-09-16 20:31] LABS: GLUCOSE CHALLENGE TEST 1 HOUR 132 MG/DL (LESS THAN 140)
[2019-09-16 20:37] LABS: HEMATOCRIT 33.8 % (36.0-47.0); HEMOGLOBIN 10.9 g/dl (12.0-15.5); MEAN CORPUSCULAR HEMOGLOBIN 30.2 pg (27.0-33.0); MEAN CORPUSCULAR HGB CONC 32.2 g/dl (32.0-36.5); MEAN CORPUSCULAR VOLUME 93.6 fl (80.0-96.0); PLATELET COUNT, AUTOMATED 214 10^3/uL (150-450); RED BLOOD COUNT 3.61 10^6/uL (4.00-5.40); WHITE BLOOD COUNT 7.5 10^3/uL (4.0-10.0)
[2019-09-16 20:55] LABS: RUBELLA IgG QUALITATIVE IMMUNE (IMMUNE)
[2019-09-16 21:24] LABS: HIV 1&2 SCREEN CENTAUR NEGATIVE (NEGATIVE)
[2019-09-16 22:45] LABS: CHLAMYDIA DNA AMPLIFICATION NEGATIVE (NEGATIVE); GC DNA AMPLIFICATION NEGATIVE (NEGATIVE)
[2019-09-18 11:12] LABS: HEPATITIS B SURFACE ANTIGEN NEGATIVE (NEGATIVE)
[2019-09-18 11:41] LABS: HEPATITIS C VIRUS ABY INDEX < 0.0 INDEX (<0.8)
== END ==
LOC: M WUC 16:52
PROVIDERS: ATTEND Advanced Practice Midwife
DX: O34.211 Maternal care for low transverse scar from previous cesarean delivery (principal)

== ENCOUNTER → 2019-10-16 | Outpatient (CLI) | payer BC ==
--- NOTE | 2019-10-17 07:44 | REP ---
Clinical: Anatomical evaluation. Comparison: 08/07/2019 . Findings: Examination demonstrates a single live intrauterine in breech presentation. motion is identified by technologist. Placenta is noted posterior and grade I I without evidence for placenta previa or abruption. Amniotic fluid volume is normal. Cervix measures 3.2 cm in length and appears closed. No evidence for nuchal cord. Gestational age by LMP 19 weeks 5 days with LOLY 03/06/2020 . Gestational age by current measurements 19 weeks 2 days with LOLY 03/09/2020 . FHR equals 139 beats per minute. Estimated weight 308 grams ( 48th percentile). Anatomical assessment demonstrates normal structures including cranium, choroid plexus, cavum, cerebellum/posterior fossa, facial features, lungs, diaphragm, stomach, cord insertion/three-vessel cord, kidneys/bladder, spine, and extremities. Impression: Single live intrauterine in breech presentation demonstrating appropriate interval growth. Limited evaluation of the heart and ventricular outflow tracts. Remainder of the anatomical assessment is complete and normal.
== END ==
LOC: M WHC 13:02
PROVIDERS: ATTEND Obstetrics & Gynecology
DX: O34.211 Maternal care for low transverse scar from previous cesarean delivery (principal)

== ENCOUNTER → 2019-11-18 | Outpatient (CLI) | payer BC ==
--- NOTE | 2019-11-19 04:36 | REP ---
Clinical: Anatomical evaluation. Comparison: 10/16/2019 . Findings: Examination demonstrates a single live intrauterine in transverse (head to maternal right) presentation. motion is identified by technologist. Placenta is noted posterior and grade I without evidence for placenta previa or abruption. Amniotic fluid volume is normal. Cervix measures 3.7 cm in length and appears closed. No evidence for nuchal cord. Gestational age by LMP 24 weeks 3 days with LOLY 03/06/2020 . Gestational age by current measurements 24 weeks 0 days with LOLY 03/09/2020 . FHR equals 136 beats per minute. Estimated weight 693 grams ( 44th percentile). Anatomical assessment demonstrates normal structures including cranium, left ventricular outflow tract, diaphragm, stomach, cord insertion/three-vessel cord, kidneys/bladder. Impression: 1. Single live intrauterine in transverse lie demonstrating appropriate estimated weight. 2. Continued limited evaluation of the four-chamber heart and right ventricular outflow tract.
== END ==
LOC: M WHC 09:59
PROVIDERS: ATTEND Advanced Practice Midwife
DX: O34.211 Maternal care for low transverse scar from previous cesarean delivery (principal); Z3A.24 24 weeks gestation of pregnancy

== ENCOUNTER → 2019-12-03 | Outpatient (REF) | payer BC ==
[2019-12-03 14:09] LABS: HEMATOCRIT 33.8 % (36.0-47.0); MEAN CORPUSCULAR HEMOGLOBIN 29.7 pg (27.0-33.0); MEAN CORPUSCULAR HGB CONC 32.5 g/dl (32.0-36.5); MEAN CORPUSCULAR VOLUME 91.4 fl (80.0-96.0); PLATELET COUNT, AUTOMATED 193 10^3/uL (150-450); WHITE BLOOD COUNT 7.3 10^3/uL (4.0-10.0)
== END ==
LOC: M PLALAB 09:16
PROVIDERS: ATTEND Advanced Practice Midwife
DX: Z34.81 Encounter for supervision of other normal pregnancy, first trimester (principal)

== ENCOUNTER → 2019-12-10 | Outpatient (CLI) | payer BC | LOC: M LAB 07:55 | PROVIDERS: ATTEND Advanced Practice Midwife | DX: O99.810 Abnormal glucose complicating pregnancy (principal) ==

== ENCOUNTER → 2020-02-06 | Outpatient (REF) | payer BC ==
[~2020-02-06] MED LIST changes: +IBUP80TA PO; +OXYC1TAB23 PO; +PRENTAB7 PO
== END ==
LOC: M PLALAB 10:52
PROVIDERS: ATTEND Advanced Practice Midwife
DX: O34.211 Maternal care for low transverse scar from previous cesarean delivery (principal)

== ENCOUNTER 2020-02-11 11:57 | Inpatient (IN) | payer BC ==
[~2020-02-11] VITALS: Ht 157.5 cm; Wt 97.1 kg
[~2020-02-11 11:57] MED LIST changes: -IBUP80TA PO; -OXYC1TAB23 PO
[2020-02-11] MEDS ORDERED: LACTATED RINGER'S 1000 ML IV STA (12:49)
[2020-02-11] MEDS ORDERED: LR 1,000 ML IV SCH ×3 (12:49→18:15)
[2020-02-11] MEDS ORDERED: ceFAZolin SOD 2 GM in IV 1 EA IV ONE (13:00)
[2020-02-11 13:44] LABS: HEMATOCRIT 34.7 % (36.0-47.0); HEMOGLOBIN 11.4 g/dl (12.0-15.5); MEAN CORPUSCULAR HEMOGLOBIN 29.6 pg (27.0-33.0); MEAN CORPUSCULAR HGB CONC 32.9 g/dl (32.0-36.5); MEAN CORPUSCULAR VOLUME 90.1 fl (80.0-96.0); PLATELET COUNT, AUTOMATED 156 10^3/uL (150-450); RED BLOOD COUNT 3.85 10^6/uL (4.00-5.40); WHITE BLOOD COUNT 8.1 10^3/uL (4.0-10.0)
--- NOTE | 2020-02-11 16:03 | SKHPN ---
[facility] Progress Note Date of Service/Time Date: Feb 11, 2020 Time: 12:56 Progress Note SUBJECTIVE: 39 YO at 37 0/7 weeks by LMP consistent with early ultrasound, presents with a gush of clear fluid per vaginally at 10:30 am. She continued to leak fluid after half an hour when she had another gush of clear fluid passing vaginally. Occasional contractions, no bleeding, Good movements. History of Past MEDICAL HISTORY: History of past surgical history: History of Appendectomy and Cholecystectomy Gynecological history: Endometriosis Gynecological surgery: LEEP procedure done x2 Endometriosis removed laproscopically. OBJECTIVE: Patient looked comfortable Her P/V exam revealed : Leakage of clear fluid. No abrasions, lesions seen. Exam per speculum showed a pool of clear fluid which was positive on a Nitrazine paper test. The fluid was also sampled on a slide to observe under a microscope. Definite ferning pattern noticed. PHYSICAL EXAMINATION: VITAL SIGNS: Please see below. GENERAL: Looks alert, oriented to time place and person. HEENT: No lesions, lymphadenopathy, No discharge from eyes ears or mouth. Tongue looks moist and well hydrated. CARDIOVASCULAR: Normal S1 S2. No murmurs, rubs, gallops. LUNGS: Chest expansion is symmetric .Normal breath sounds, No wheezing, crackles or rhonchi. ABDOMINAL: The abdomen is distended appropriately in sync with the . Non tender. Laproscopic scars seen for previous surgeries. FHR heard using the stethoscope. EXTREMITIES: UE: Normal temperature , No edema, cyanosis. LE: No edema, No lesions, No signs of DVT. Pulse is normal and symmetric NEUROLOGICAL: Normal movements and sensations intact PSYCHOLOGICAL: Looks in a pretty good mood, affect is appropriate LABORATORY DATA: Please see below. IMAGING: DVT prophylaxis: None ASSESSMENT: 39 yo , 1,6,2 admitted for a section because of spontaneous rupture of membranes. PLAN: . The patient is scheduled for a for later this day . Allergies Coded Allergies: No Known Allergies (Verified , 10/03/10) VS, I&O, 24H, Fishbone Laboratory Data 24H LABS Laboratory Tests 2 02/11/20 12:49: Serology Scanned Report Hepatitis B Testing Josselin Eli MD Feb 11, 2020 13:27
[2020-02-11] MEDS ORDERED: BICITRA 30ML SOLN UDC PO ONE (16:30)
[2020-02-11] MEDS ORDERED: ONDANSETRON 4MG/2ML VIAL As Ordered ONE ×2 (16:38→19:35)
[2020-02-11] MEDS ORDERED: PHENYLephrine HCL 500 MCG/5 ML (100MCG/ML) SYRINGE (J2370) As Ordered ONE (16:38)
[2020-02-11] MEDS ORDERED: OXYTOCIN 30 UNITS IN 0.9% NaCl 500ML IV BAG (J2590) As Ordered ONE ×2 (16:38→18:19)
[2020-02-11] MEDS ORDERED: ePHEDrine SULFATE 25 MG/5 ML(5MG/ML) SYRINGE As Ordered ONE (16:38)
[2020-02-11] MEDS ORDERED: MORPHINE PRES-FREE INJ 10 MG/10 ML VIAL (J2274) As Ordered ONE (16:38)
[2020-02-11] MEDS ORDERED: KETOROLAC 60MG 2ML VIAL As Ordered ONE (16:39)
[2020-02-11] MEDS ORDERED: diphenhydrAMINE 50MG/ML VIAL (J1200) IV PRN (17:06)
[2020-02-11] MEDS ORDERED: NALOXONE INJ 0.4MG/1ML VIAL (J2310 PER 1MG) IV PRN ×2 (17:06)
[2020-02-11] MEDS ORDERED: ONDANSETRON 4MG/2ML VIAL IV PRN ×2 (17:06→18:15)
[2020-02-11] MEDS ORDERED: NALBUPHINE HCL 10 MG/ML AMP (J2300) IV PRN (17:06)
[2020-02-11] MEDS ORDERED: OXYTOCIN DRIP 30 UNITS in IV 1 EA IV SCH (18:05)
[2020-02-11] MEDS ORDERED: MEASLES,MUMPS,RUBELLA VACCINE INJ (MMR-II) (90707) SC SCH (18:15)
[2020-02-11] MEDS ORDERED: PERCOCET 5MG/325MG TAB PO PRN ×3 (18:15)
[2020-02-11] MEDS ORDERED: RHOGAM 300 MCG (1500 IU) INJ (J2790) IM SCH (18:15)
[2020-02-11] MEDS ORDERED: fentaNYL 100 MCG/2 ML INJECTION (J3010) IV PRN (18:15)
[2020-02-11] MEDS: ONDANSETRON 4MG/2ML VIAL IV PRN (19:40)
[2020-02-11] MEDS ORDERED: OXYC1TAB23 PO (19:58)
[2020-02-11] MEDS ORDERED: IBUP80TA PO (19:59)
[2020-02-11] MEDS: METOCLOPRAMIDE INJ 10MG/2ML VIAL (J2765 PER 1) IV PRN (20:25)
[2020-02-11 20:30] VITALS: BP 124/72
[2020-02-11 21:00] VITALS: BP 132/73
[2020-02-11 21:30] VITALS: BP 133/73
[2020-02-11 22:55] VITALS: BP 133/77
[2020-02-11 23:41] VITALS: BP 135/70
[2020-02-12] MEDS: KETOROLAC 30 MG/ML 1ML VIAL IV SCH ×3 (00:16→12:56)
[2020-02-12] MEDS: ONDANSETRON 4MG/2ML VIAL IV PRN (02:11)
[2020-02-12 02:41] VITALS: BP 130/72
[2020-02-12] MEDS: METOCLOPRAMIDE INJ 10MG/2ML VIAL (J2765 PER 1) IV PRN (05:11)
[2020-02-12 05:33] VITALS: BP 122/68
[2020-02-12 07:34] LABS: HEMATOCRIT 32.2 % (36.0-47.0); HEMOGLOBIN 10.5 g/dl (12.0-15.5); MEAN CORPUSCULAR HEMOGLOBIN 29.5 pg (27.0-33.0); MEAN CORPUSCULAR HGB CONC 32.6 g/dl (32.0-36.5); MEAN CORPUSCULAR VOLUME 90.4 fl (80.0-96.0); PLATELET COUNT, AUTOMATED 148 10^3/uL (150-450); RED BLOOD COUNT 3.56 10^6/uL (4.00-5.40); WHITE BLOOD COUNT 11.8 10^3/uL (4.0-10.0)
[2020-02-12] MEDS ORDERED: CALCIUM CARBONATE 500 MG CHEW U/D PO PRN (08:30)
[2020-02-12 10:00] VITALS: BP 123/69
[2020-02-12] MEDS: PRENATAL VITAMINS CHEWABLE TABLET PO SCH (10:00)
[2020-02-12 14:00] VITALS: BP 114/66
[2020-02-12 18:00] VITALS: BP 130/76
[2020-02-12] MEDS: DOCUSATE SODIUM 100 MG CAP PO PRN (19:58)
[2020-02-12] MEDS: IBUPROFEN 800 MG TAB PO SCH (19:58)
[2020-02-12 22:04] VITALS: BP 118/62
[2020-02-13] MEDS: IBUPROFEN 800 MG TAB PO SCH ×3 (04:30→20:14)
[2020-02-13 05:38] VITALS: BP 105/61
[2020-02-13] MEDS: PRENATAL VITAMINS CHEWABLE TABLET PO SCH (07:59)
[2020-02-13 18:00] VITALS: BP 124/76
[2020-02-13] MEDS: DOCUSATE SODIUM 100 MG CAP PO PRN (20:23)
[2020-02-14] MEDS: IBUPROFEN 800 MG TAB PO SCH (04:16)
[2020-02-14 05:36] VITALS: BP 125/70
[2020-02-14] MEDS: PRENATAL VITAMINS CHEWABLE TABLET PO SCH (08:17)
--- NOTE | 2020-02-17 22:29 | RO ---
DATE OF PROCEDURE: 02/11/2020 PREPROCEDURE DIAGNOSIS: 37 weeks, premature rupture of membranes, prior section times one. POSTPROCEDURE DIAGNOSIS: 37 weeks, premature rupture of membranes, prior section times one. PROCEDURE: Repeat low transverse section. SURGEON: Matthew Xavier MD YARN EXAMINER: Мария Palomares CNM ANESTHESIA: Spinal. ESTIMATED BLOOD LOSS: 500 mL. URINE OUTPUT: 100 mL. FINDINGS: 6 pound 15 ounce, 3140 gram male infant. scores 8 and 9. Vertex position. Normal uterus, tubes and ovaries. Velamentous cord insertion noted on placenta. DESCRIPTION OF PROCEDURE: The patient was taken to the operating room where spinal anesthesia was induced. She was prepped and draped in a sterile fashion in the supine position. A Simmons catheter was placed. A Pfannenstiel skin incision was made with a scalpel and carried through to the fascia. The fascia was nicked and extended. The fascia was dissected off the rectus muscles. The peritoneal cavity was entered, bladder flap was created. A Mobius retractor was placed. A curvilinear incision was made in the lower uterine segment until clear fluid was noted. This was extended manually. The was delivered from the vertex position without difficulty. The cord was doubly clamped and cut. The infant was handed off to the awaiting nurses. Placenta was expressed. The uterus was closed with #0 Vicryl in a running locked fashion. Several [id number] sutures were placed for hemostasis. The peritoneum was closed with #2-0 Vicryl in a running fashion. The fascia was closed with #0 Vicryl in a running fashion. The deep layer was closed with #2-0 chromic. The skin was closed with #4-0 Monocryl subcuticular sutures. Sponge, instrument, and needle counts were correct. Мария Palomares CNM assisted throughout the procedure. She was indispensable to the procedure. She assisted with every aspect.
--- NOTE | 2020-02-23 11:32 | DSES ---
DATE OF ADMISSION: 02/11/2020 DATE OF DISCHARGE: 02/14/2020 39-year-old, (G) 9, para (P) 2, female at 37 and 0/7 weeks gestation who presented with gush of fluid per vagina at 10:30 a.m. on the day of admission. She continued to leak fluid. She has a history of prior section. She was scheduled for a repeat section at term. Her contractions also began to increase shortly thereafter. HOSPITAL COURSE: The patient was evaluated on 02/11/2020 and diagnosed with spontaneous rupture of membranes with early labor. Decision was made to proceed with planned repeat section. On 02/11/2020, she underwent repeat section for a viable with no complications. Her postoperative course was unremarkable. She had adequate return of bladder and bowel function. Her postoperative hemoglobin was 10.5 g/dl. Her baby was admitted to the intensive care unit (NICU). She was deemed stable for discharge on postoperative day #3. ADMISSION DIAGNOSES: 37 weeks. Spontaneous rupture of membranes. Early labor. Prior section. DISCHARGE DIAGNOSIS: Delivered. PROCEDURE: Repeat low transverse section. DISPOSITION: The patient will followup with Dr. Xavier in 2 weeks. Instructions were reviewed.
== END 2020-02-14 10:40 | disposition home or self-care (01) | DRG 540 ==
LOC: M LDO 11:57 → M LDI 12:46 → M OBS 20:30
PROVIDERS: ADMIT Specialist; ATTEND Specialist
PROC: 10D00Z1 Extraction of Products of Conception, Low, Open Approach (ICD-10-PCS; principal; 2020-02-11 16:35)
DX: O34.211 Maternal care for low transverse scar from previous cesarean delivery (principal); O09.523 Supervision of elderly multigravida, third trimester; Z37.0 Single live birth; Z3A.37 37 weeks gestation of pregnancy

== ENCOUNTER → 2020-05-30 | Outpatient (REF) | payer BC ==
[~2020-05-30] MED LIST changes: +IBUP80TA PO; +OXYC1TAB23 PO
== END ==
LOC: M LAB REF 18:17
PROVIDERS: ATTEND Physician Assistant
DX: A08.4 Viral intestinal infection, unspecified (principal)

== ENCOUNTER → 2020-06-03 | Outpatient (REF) | payer BC | LOC: M SFHCPLAZ 18:38 | PROVIDERS: ATTEND Specialist | DX: Z01.419 Encounter for gynecological examination (general) (routine) without abnormal findings (principal) ==

== ENCOUNTER → 2020-08-05 | Outpatient (REF) | payer BC | LOC: M LAB REF 16:59 | PROVIDERS: ATTEND Physician Assistant | DX: N39.0 Urinary tract infection, site not specified (principal) ==

== ENCOUNTER → 2020-08-26 | Outpatient (REF) | payer BC | LOC: M LAB REF 18:09 | PROVIDERS: ATTEND Physician Assistant | DX: J06.9 Acute upper respiratory infection, unspecified (principal) ==

== ENCOUNTER → 2020-09-01 | Outpatient (CLI) | payer BC | LOC: M LAB 17:09 | PROVIDERS: ATTEND Physician Assistant | DX: Z34.81 Encounter for supervision of other normal pregnancy, first trimester (principal); Z3A.01 Less than 8 weeks gestation of pregnancy ==

== ENCOUNTER → 2020-09-17 | Outpatient (REF) | payer BC | LOC: M PLALAB 09:07 | PROVIDERS: ATTEND Obstetrics & Gynecology | DX: Z34.91 Encounter for supervision of normal pregnancy, unspecified, first trimester (principal); Z3A.11 11 weeks gestation of pregnancy ==

== ENCOUNTER → 2020-10-23 | Outpatient (REF) | payer BC ==
[2020-10-23 14:03] LABS: HEMATOCRIT 37.6 % (36.0-47.0); HEMOGLOBIN 12.6 g/dl (12.0-15.5); MEAN CORPUSCULAR HEMOGLOBIN 30.6 pg (27.0-33.0); MEAN CORPUSCULAR HGB CONC 33.5 g/dl (32.0-36.5); MEAN CORPUSCULAR VOLUME 91.3 fl (80.0-96.0); PLATELET COUNT, AUTOMATED 235 10^3/uL (150-450); RED BLOOD COUNT 4.12 10^6/uL (4.00-5.40); WHITE BLOOD COUNT 7.1 10^3/uL (4.0-10.0)
[2020-10-23 15:20] LABS: HEPATITIS C VIRUS ABY INDEX < 0.0 INDEX (<0.8); HIV 1&2 SCREEN CENTAUR NEGATIVE (NEGATIVE)
== END ==
LOC: M PLALAB 10:13
PROVIDERS: ATTEND Obstetrics & Gynecology
DX: O09.512 Supervision of elderly primigravida, second trimester (principal)

== ENCOUNTER → 2020-11-10 | Outpatient (REF) | payer OTHER | LOC: M LAB REF 17:28 | PROVIDERS: ATTEND Family Medicine | DX: J06.9 Acute upper respiratory infection, unspecified (principal) ==

== ENCOUNTER → 2021-01-04 | Outpatient (CLI) | payer OTHER ==
[2021-01-04 12:52] LABS: HEMATOCRIT 32.6 % (36.0-47.0); HEMOGLOBIN 10.3 g/dl (12.0-15.5); MEAN CORPUSCULAR HEMOGLOBIN 29.5 pg (27.0-33.0); MEAN CORPUSCULAR HGB CONC 31.6 g/dl (32.0-36.5); MEAN CORPUSCULAR VOLUME 93.4 fl (80.0-96.0); PLATELET COUNT, AUTOMATED 185 10^3/uL (150-450); RED BLOOD COUNT 3.49 10^6/uL (4.00-5.40); WHITE BLOOD COUNT 7.5 10^3/uL (4.0-10.0)
== END ==
LOC: M WUC 10:03
PROVIDERS: ATTEND Specialist
DX: Z34.82 Encounter for supervision of other normal pregnancy, second trimester (principal)

== ENCOUNTER → 2021-01-15 | Outpatient (CLI) | payer OTHER | LOC: M LAB 08:49 | PROVIDERS: ATTEND Specialist | DX: Z34.82 Encounter for supervision of other normal pregnancy, second trimester (principal) ==

== ENCOUNTER → 2021-03-23 | Outpatient (REF) | payer OTHER | LOC: M SFHCWAGY 16:45 | PROVIDERS: ATTEND Obstetrics & Gynecology | DX: Z34.93 Encounter for supervision of normal pregnancy, unspecified, third trimester (principal); Z3A.36 36 weeks gestation of pregnancy ==

== ENCOUNTER → 2021-04-03 | Outpatient (CLI) | payer OTHER | LOC: M LABSMTC 08:56 | PROVIDERS: ATTEND Anesthesiology | DX: Z01.812 Encounter for preprocedural laboratory examination (principal) ==

== ENCOUNTER 2021-04-08 05:27 | Inpatient (IN) | payer OTHER ==
[2021-04-08] VITALS (9 sets, daily range): BP systolic 116–177; BP diastolic 58–103
[~2021-04-08] VITALS: Ht 152.4 cm; Wt 88.4 kg
[2021-04-08] MEDS ORDERED: LR 1,000 ML IV ONE (05:45)
[2021-04-08] MEDS ORDERED: BICITRA 30ML SOLN UDC PO ONE (05:45)
[2021-04-08] MEDS ORDERED: ceFAZolin SOD 2 GM in IV 1 EA IV ONE (05:45)
[2021-04-08] MEDS ORDERED: HOME MED LIST COMPLETE! XX SCH (05:50)
[2021-04-08 06:29] LABS: HEMOGLOBIN 11.2 g/dl (12.0-15.5); MEAN CORPUSCULAR HEMOGLOBIN 29.2 pg (27.0-33.0); MEAN CORPUSCULAR HGB CONC 32.9 g/dl (32.0-36.5); MEAN CORPUSCULAR VOLUME 88.8 fl (80.0-96.0); PLATELET COUNT, AUTOMATED 156 10^3/uL (150-450); RED BLOOD COUNT 3.83 10^6/uL (4.00-5.40); WHITE BLOOD COUNT 8.3 10^3/uL (4.0-10.0)
[2021-04-08] MEDS ORDERED: LR 1,000 ML IV SCH ×3 (06:45→08:45)
[2021-04-08] MEDS ORDERED: dexameTHASONE 4 MG/ML 1ML VIAL (J1100 PER 1MG) As Ordered ONE (07:19)
[2021-04-08] MEDS ORDERED: OXYTOCIN INJ 10 UNITS/ML VIAL (J2590) As Ordered ONE (07:19)
[2021-04-08] MEDS ORDERED: ONDANSETRON 4MG/2ML VIAL As Ordered ONE (07:19)
[2021-04-08] MEDS ORDERED: KETOROLAC 60MG 2ML VIAL As Ordered ONE (07:19)
[2021-04-08] MEDS ORDERED: MORPHINE PRES-FREE INJ 10 MG/10 ML VIAL (J2274) As Ordered ONE (07:24)
[2021-04-08] MEDS ORDERED: fentaNYL 100 MCG/2 ML INJECTION (J3010) As Ordered ONE (07:24)
[2021-04-08] MEDS ORDERED: ONDANSETRON 4MG/2ML VIAL IV PRN ×3 (07:37→08:45)
[2021-04-08] MEDS ORDERED: NALBUPHINE HCL 10 MG/ML AMP (J2300) IV PRN (07:37)
[2021-04-08] MEDS ORDERED: METOCLOPRAMIDE INJ 10MG/2ML VIAL (J2765 PER 1) IV PRN ×2 (07:37→08:35)
[2021-04-08] MEDS ORDERED: NALOXONE INJ 0.4MG/1ML VIAL (J2310 PER 1MG) IV PRN ×2 (07:37)
[2021-04-08] MEDS ORDERED: fentaNYL 100 MCG/2 ML INJECTION (J3010) IV PRN (08:35)
[2021-04-08] MEDS ORDERED: oxyCODONE 5MG TAB PO PRN (08:35)
[2021-04-08] MEDS ORDERED: MEASLES,MUMPS,RUBELLA VACCINE INJ (MMR-II) (90707) SC SCH (08:45)
[2021-04-08] MEDS ORDERED: DOCUSATE SODIUM 100MG CAPSULE PO PRN (08:45)
[2021-04-08] MEDS ORDERED: SIMETHICONE 80MG CHEW TAB PO PRN (08:45)
[2021-04-08] MEDS ORDERED: PERCOCET 5MG/325MG TAB PO PRN ×2 (08:45)
[2021-04-08] MEDS ORDERED: RHOGAM 300 MCG (1500 IU) INJ (J2790) IM SCH (08:45)
[2021-04-08] MEDS ORDERED: OXYTOCIN DRIP 30 UNITS in IV 1 EA IV SCH (08:45)
[2021-04-08] MEDS ORDERED: OXYTOCIN 30 UNITS IN 0.9% NaCl 500ML IV BAG (J2590) As Ordered ONE (08:55)
[2021-04-08] MEDS: PRENATAL VITAMINS CHEWABLE TABLET PO SCH (09:00)
--- NOTE | 2021-04-08 09:11 | ROOPDOC ---
[facility] Report Of Operation Report of Operation DATE OF PROCEDURE: 04/08/21 Report of operation Preoperative diagnosis: 39 weeks, prior section x 2 Postoperative diagnosis: same Procedure: Repeat low transverse section. Surgeon: Tomy Mazariegos M.D. EBL: 500 ml. Urine output: 100 mL's. Findings: 8 lbs. 6 oz. male , 's 8 and 9 g, thin lower uterine segment, normal fallopian tubes, ovaries. Omental adhesions to anterior abdominal wall. Operative summary: Patient taken to the operating room where spinal anesthesia was induced. She was prepped draped in a sterile fashion in the supine position. A Simmons catheter was placed. A Pfannenstiel skin incision was made with scalpel. Fascia was incised and extended bilaterally. The peritoneal cavity was entered. A Mobius retractor was placed. A bladder flap was created. A curvilinear incision was made in lower uterine segment until Clear fluid was noted. The incision was extended manually. The was delivered from the vertex position without difficulty. Cord was doubly clamped and cut. The infant was handed to the awaiting nurses. The placenta was expressed. Uterus was closed with O-Vicryl in a running locked fashion. A second imbricating layer of Vicryl was placed. Peritoneum was closed with 2-0 Vicryl a running fashion. Fascia was closed with 0 Vicryl in running fashion. Skin was closed 4-0 Monocryl subcuticular sutures. Sponge, instrument and needle counts were correct. TOMY MAZARIEGOS MD Apr 08, 2021 09:11
[2021-04-08] MEDS ORDERED: PROMETHAZINE INJ 25 MG/ML VIAL (J2550) IV ONE (13:30)
[2021-04-08] MEDS: KETOROLAC 30 MG/ML 1ML VIAL IV SCH ×2 (13:52→20:23)
[2021-04-08] MEDS: diphenhydrAMINE 50MG/ML VIAL (J1200) IV PRN ×2 (17:24→22:39)
[2021-04-09 02:00] VITALS: BP 121/63
[2021-04-09] MEDS: KETOROLAC 30 MG/ML 1ML VIAL IV SCH (02:13)
[2021-04-09] MEDS ORDERED: IBUP80TA PO (05:27)
[2021-04-09] MEDS ORDERED: OXYC1TAB23 PO (05:27)
[2021-04-09 06:00] VITALS: BP 114/58
--- NOTE | 2021-04-09 08:37 | IPNPDOC ---
Text Note Date of Service The patient was seen on 04/09/21. NOTE PO #1 Feels well. Adequate pain management. Out of bed, showered. Voiding. VSS, afebrile, normotensive Fundus firm, nontender Dressing intact, scant old drainage Lochia rubra light without odor PO #1 Routine care. Anticipate D/C in am VS,Fishbone, I+O VS, Fishbone, I+O Vital Signs Date Time Temp Pulse Resp B/P (MAP) Pulse Ox O2 Delivery O2 Flow Rate FiO2 04/09/21 06:00 97.7 78 16 114/58 (76) 97 Room Air I&O- Last 24 Hours up to 6 AM 04/09/21 06:00 Intake Total 4087 ml Output Total 3185 ml Balance 902 ml Yancy Stanford CNM Apr 09, 2021 08:37
[2021-04-09 08:56] LABS: HEMATOCRIT 32.9 % (36.0-47.0); HEMOGLOBIN 10.3 g/dl (12.0-15.5); MEAN CORPUSCULAR HEMOGLOBIN 28.8 pg (27.0-33.0); MEAN CORPUSCULAR HGB CONC 31.3 g/dl (32.0-36.5); MEAN CORPUSCULAR VOLUME 91.9 fl (80.0-96.0); PLATELET COUNT, AUTOMATED 155 10^3/uL (150-450); RED BLOOD COUNT 3.58 10^6/uL (4.00-5.40); WHITE BLOOD COUNT 10.2 10^3/uL (4.0-10.0)
[2021-04-09] MEDS: PRENATAL VITAMINS CHEWABLE TABLET PO SCH (10:00)
[2021-04-09] MEDS: IBUPROFEN 800 MG TAB PO SCH ×2 (10:00→17:55)
[2021-04-09] MEDS: diphenhydrAMINE 25MG CAP PO PRN ×2 (10:00→17:55)
[2021-04-09 14:00] VITALS: BP 127/67
[2021-04-09 22:00] VITALS: BP 116/67
[2021-04-10 02:00] VITALS: BP 115/61
[2021-04-10] MEDS: IBUPROFEN 800 MG TAB PO SCH ×2 (02:00→08:44)
[2021-04-10 06:00] VITALS: BP 127/71
[2021-04-10] MEDS: PRENATAL VITAMINS CHEWABLE TABLET PO SCH (08:42)
[2021-04-10] MEDS ORDERED: INFLUENZA QUADRIVALENT PF VACCINE 0.5ML SYRINGE IM ONE (09:00)
--- NOTE | 2021-04-10 12:36 | DS.PDOC ---
Discharge Summary General Date of Admission Apr 08, 2021 at 05:27 Date of Discharge 04/10/2021 Discharge Summary DATE OF ADMISSION: 04/08/2021 DATE OF DISCHARGE: 04/10/2021 ADMISSION DIAGNOSIS: 39+ weeks gestation history of low transverse section DISCHARGE DIAGNOSIS: Same DISCHARGE SUMMARY: The patient was admitted at 39+ weeks gestation for a scheduled repeat low transverse section. The section delivery was uncomplicated. Her postoperative course was uncomplicated as well. On postoperative day #2, she was meeting all discharge criteria. PHYSICAL EXAMINATION ON DATE OF DISCHARGE: Normotensive. Normal heart rate. Afebrile. HEART: Regular rate and rhythm. No murmurs, gallops, or rubs. LUNGS: Clear to auscultation bilaterally. ABDOMEN: Soft, nontender, nondistended. Incision bandage clean and dry. EXTREMITIES: Nonedematous, nontender. She was meeting all discharge criteria on postoperative day #2. We reviewed routine fever, infectious, pain, and bleeding precautions. She is to followup in 2 weeks for incision check. Her postoperative medications are Percocet, Motrin, and Colace. Vital Signs/I&Os Vital Signs Date Time Temp Pulse Resp B/P (MAP) Pulse Ox O2 Delivery O2 Flow Rate FiO2 04/10/21 06:00 97.7 77 16 127/71 (89) 98 Room Air Discharge Medications Scheduled Ibuprofen (Ibuprofen) 800 Mg Tablet, 800 MG PO Q8H Pnv No.95/Ferrous Fum/Folic AC ( Vitamins Tablet) 1 Each Tablet, 1 TAB PO DAILY, (Reported) Scheduled PRN Oxycodone HCl/Acetaminophen (Oxycodone-Acetaminophen 5-325) 1 Each Tablet, 1 TAB PO TIDP PRN for pain Allergies Coded Allergies: No Known Allergies (Verified , 03/31/21) KAYLAH ROYAL DO Apr 10, 2021 12:36
== END 2021-04-10 13:20 | disposition home or self-care (01) | DRG 788 ==
LOC: M LDI 05:27 → M OBS 09:44
PROVIDERS: ADMIT Specialist; ATTEND Specialist
PROC: 10D00Z1 Extraction of Products of Conception, Low, Open Approach (ICD-10-PCS; principal; 2021-04-08 07:30)
DX: O34.211 Maternal care for low transverse scar from previous cesarean delivery (principal); Z3A.39 39 weeks gestation of pregnancy; Z37.0 Single live birth

== ENCOUNTER → 2022-12-05 | Outpatient (CLI) | payer OTHER | LOC: M WHC 15:01 | PROVIDERS: ATTEND Specialist | DX: Z12.31 Encounter for screening mammogram for malignant neoplasm of breast (principal) ==

== ENCOUNTER → 2022-12-05 | Outpatient (REF) | payer OTHER | LOC: M SFHCWAGY 17:30 | PROVIDERS: ATTEND Specialist | DX: Z01.419 Encounter for gynecological examination (general) (routine) without abnormal findings (principal) | CPT/HCPCS: 87624; G0123 ==

== ENCOUNTER → 2024-06-05 | Outpatient (REF) | payer OTHER ==
[~2024-06-05] MED LIST changes: -HYDR200T3; +HYDR200T46
[2024-06-07 14:48] LABS: HPV APTIMA Not Detected (Not Detected)
== END ==
LOC: M SFHCWAGY 13:17
PROVIDERS: ATTEND Specialist
DX: Z01.419 Encounter for gynecological examination (general) (routine) without abnormal findings (principal)
CPT/HCPCS: 87624; G0123

== ENCOUNTER → 2024-06-05 | Outpatient (CLI) | payer OTHER | LOC: M WHC 11:01 | PROVIDERS: ATTEND Specialist | DX: Z12.31 Encounter for screening mammogram for malignant neoplasm of breast (principal); R92.323 Mammographic fibroglandular density, bilateral breasts; N63.22 Unspecified lump in the left breast, upper inner quadrant ==

== ENCOUNTER → 2024-06-20 | Outpatient (CLI) | payer OTHER | LOC: M WHC 09:03 | PROVIDERS: ATTEND Specialist | DX: N63.22 Unspecified lump in the left breast, upper inner quadrant (principal); R92.8 Other abnormal and inconclusive findings on diagnostic imaging of breast ==

== ENCOUNTER → 2024-06-27 | Outpatient (CLI) | payer OTHER ==
[2024-06-27 10:51] VITALS: TEMP 98.7
[2024-06-27 11:46] VITALS: BP 116/80; O2SAT 100
== END ==
LOC: M WHCPRO 09:34
PROVIDERS: ATTEND Specialist
DX: R92.8 Other abnormal and inconclusive findings on diagnostic imaging of breast (principal); N63.22 Unspecified lump in the left breast, upper inner quadrant

== ENCOUNTER → 2024-07-28 | Outpatient (REF) | payer OTHER | LOC: M LAB REF 18:01 | PROVIDERS: ATTEND Physician Assistant Medical | DX: B34.9 Viral infection, unspecified (principal) ==

== ENCOUNTER → 2025-07-25 | Outpatient (REF) | payer OTHER ==
[2025-07-29 13:03] LABS: HPV APTIMA Not Detected (Not Detected)
== END ==
LOC: M SFHCWAGY 13:05
PROVIDERS: ATTEND Specialist
DX: Z12.4 Encounter for screening for malignant neoplasm of cervix (principal); Z77.9 Other contact with and (suspected) exposures hazardous to health
CPT/HCPCS: 87624; G0123